=== PATIENT | male | born 1995 | race Caucasian/White ===

== ENCOUNTER 2017-01-19 14:13 | Emergency (ER) | payer BC ==
[~2017-01-19] VITALS: Ht 175.3 cm; Wt 86.3 kg
[2017-01-19 14:14] VITALS: BP 131/85
[2017-01-19] MEDS ORDERED: CYPR4TA PO (14:20)
[2017-01-19] MEDS ORDERED: PRAZ1CAP PO (14:20)
[2017-01-19] MEDS ORDERED: SERT-155 PO (14:20)
== END 2017-01-19 15:25 | disposition home or self-care (01) ==
LOC: M ED 15:08
DX: F32.9 Major depressive disorder, single episode, unspecified (principal)

== ENCOUNTER 2022-06-07 14:29 | Emergency (ER) | payer BC, MEDICAID, SELFPAY ==
[~2022-06-07] VITALS: Ht 177.8 cm; Wt 79.0 kg
[~2022-06-07 14:29] MED LIST: CYPR4TA PO; PRAZ1CAP PO; SERT50TA29 PO
[2022-06-07 15:30] LABS: MEAN CORPUSCULAR HEMOGLOBIN 32.5 pg (27.0-33.0); MEAN CORPUSCULAR HGB CONC 34.8 g/dl (32.0-36.5); MEAN CORPUSCULAR VOLUME 93.5 fl (80.0-96.0); PLATELET COUNT, AUTOMATED 326 10^3/uL (150-450); RED BLOOD COUNT 4.92 10^6/uL (4.30-6.10); WHITE BLOOD COUNT 8.4 10^3/uL (4.0-10.0)
[2022-06-07 16:08] LABS: RSV AMPLIFICATION NEGATIVE (NEGATIVE)
[2022-06-07 16:20] LABS: ACETAMINOPHEN LEVEL < 2.0 UG/ML (10.0-30.0); ALKALINE PHOSPHATASE 78 U/L (45-117); ALT/SGPT 31 U/L (12-78); AST/SGOT 27 U/L (7-37); BILIRUBIN,DIRECT 0.4 MG/DL (0.0-0.2); BILIRUBIN,TOTAL 1.1 MG/DL (0.2-1.0); BLOOD UREA NITROGEN 9 MG/DL (7-18); CALCIUM LEVEL 10.3 MG/DL (8.5-10.1); CARBON DIOXIDE LEVEL 27 MEQ/L (21-32); CHLORIDE LEVEL 100 MEQ/L (98-107); CREATININE FOR GFR 1.05 MG/DL (0.70-1.30); ETHYL ALCOHOL (ETHANOL) < 0.003 % (0.000-0.010); GLOMERULAR FILTRATION RATE > 60.0 (>60); GLUCOSE, FASTING 119 MG/DL (70-100); POTASSIUM SERUM 3.8 MEQ/L (3.5-5.1); SALICYLATE LEVEL < 1.7 MG/DL (5.0-30.0); SODIUM LEVEL 136 MEQ/L (136-145); TOTAL PROTEIN 8.3 GM/DL (6.4-8.2)
[2022-06-07 17:35] LABS: AMPHETAMINES LEVEL URINE NEGATIVE (NEGATIVE); BARBITURATES URINE NEGATIVE (NEGATIVE); BENZODIAZEPINES URINE NEGATIVE (NEGATIVE); CANNABINOIDS URINE NEGATIVE (NEGATIVE); COCAINE METABOLITE URINE NEGATIVE (NEGATIVE); METHADONE URINE NEGATIVE (NEGATIVE); OPIATES URINE NEGATIVE (NEGATIVE); PHENCYCLIDINE URINE NEGATIVE (NEGATIVE)
[2022-06-07] MEDS ORDERED: HOME MED LIST COMPLETE! XX SCH (17:40)
[2022-06-07] MEDS ORDERED: LORazepam 1 MG TAB PO STA (23:01)
[2022-06-08 03:27] LABS: PHOSPHORUS LEVEL 3.6 MG/DL (2.5-4.9)
[2022-06-09 10:34] LABS: PTH INTACT 17.3 PG/ML (18.5-88.0)
[2022-06-09] MEDS: PALIPERIDONE 3 MG ER TAB (INVEGA) PO SCH (21:00)
[2022-06-10 04:29] LABS: APPEARANCE, URINE MANUAL CLEAR (CLEAR); BILIRUBIN, URINE MANUAL 2+ (NEGATIVE); BLOOD URINE MANUAL NEGATIVE (NEGATIVE); COLOR, URINE MANUAL DK YELLOW (YELLOW); GLUCOSE, URINE (UA) MANUAL NEGATIVE (NEGATIVE); KETONE, URINE MANUAL 3+ mg/dL (NEGATIVE); NITRITE, URINE MANUAL NEGATIVE (NEGATIVE); PROTEIN, URINE MANUAL TRACE mg/dL (NEGATIVE); SPECIFIC GRAVITY,URINE MANUAL 1.025 (1.002-1.035); UROBILINOGEN, URINE MANUAL 8 MG mg/dl (NORMAL)
[2022-06-10 04:30] LABS: LEUKOCYTE ESTERASE, URINE MAN TRACE (NEGATIVE)
[2022-06-10 05:56] LABS: RBC, URINE NONE SEEN /hpf (0-3)
[2022-06-10 05:57] LABS: BACTERIA, URINE NONE SEEN; HYALINE CAST, URINE 0-1 /lpf (0-1); MUCUS, URINE LARGE AMOUNT (NEGATIVE); SQUAMOUS EPITHELIAL CELL URINE NONE SEEN /hpf (SMALL AMT)
[2022-06-10] MEDS: PALIPERIDONE 3 MG ER TAB (INVEGA) PO SCH (09:00)
[2022-06-10 10:54] VITALS: BP 120/70
== END 2022-06-10 11:08 ==
LOC: M ED 14:29
DX: R45.851 Suicidal ideations (principal); F32.9 Major depressive disorder, single episode, unspecified; F10.10 Alcohol abuse, uncomplicated; G43.909 Migraine, unspecified, not intractable, without status migrainosus

== ENCOUNTER 2023-01-14 14:42 | Inpatient (IN) | payer MEDICAID, OTHER ==
[~2023-01-14] VITALS: Ht 180.3 cm; Wt 90.8 kg
[2023-01-14 16:18] LABS: AMPHETAMINES LEVEL URINE NEGATIVE (NEGATIVE); BENZODIAZEPINES URINE NEGATIVE (NEGATIVE); CANNABINOIDS URINE NEGATIVE (NEGATIVE); METHADONE URINE NEGATIVE (NEGATIVE); OPIATES URINE NEGATIVE (NEGATIVE); PHENCYCLIDINE URINE NEGATIVE (NEGATIVE)
[2023-01-14 16:19] LABS: BARBITURATES URINE NEGATIVE (NEGATIVE); COCAINE METABOLITE URINE NEGATIVE (NEGATIVE)
[2023-01-14 16:20] LABS: ETHYL ALCOHOL (ETHANOL) < 0.003 % (0.000-0.010)
[2023-01-14 16:21] LABS: HEMATOCRIT 40.3 % (42.0-52.0); HEMOGLOBIN 13.7 g/dl (13.5-17.5); MEAN CORPUSCULAR HEMOGLOBIN 32.5 pg (27.0-33.0); MEAN CORPUSCULAR VOLUME 95.7 fl (80.0-96.0); PLATELET COUNT, AUTOMATED 329 10^3/uL (150-450); RED BLOOD COUNT 4.21 10^6/uL (4.30-6.10); SALICYLATE LEVEL < 3.0 MG/DL (<30); WHITE BLOOD COUNT 9.7 10^3/uL (4.0-10.0)
[2023-01-14 16:22] LABS: ALBUMIN 4.4 G/DL (3.2-5.2); ALKALINE PHOSPHATASE 62 U/L (46-116); ALT/SGPT 24 U/L (7.0-40); AST/SGOT 28 U/L (<34); BILIRUBIN,DIRECT 0.2 MG/DL (<0.4); BILIRUBIN,TOTAL 0.6 MG/DL (0.3-1.2); BLOOD UREA NITROGEN 15 MG/DL (9-23); CALCIUM LEVEL 9.7 MG/DL (8.5-10.1); CARBON DIOXIDE LEVEL 25 MMOL/L (20-31); CHLORIDE LEVEL 104 MMOL/L (98-107); CREATININE FOR GFR 0.87 MG/DL (0.70-1.30); GLOMERULAR FILTRATION RATE > 60.0 (>60); GLUCOSE, FASTING 119 MG/DL (60-100); POTASSIUM SERUM 4.6 MMOL/L (3.5-5.1); SODIUM LEVEL 138 MMOL/L (136-145); TOTAL PROTEIN 6.9 G/DL (5.7-8.2)
[2023-01-14 16:23] LABS: THYROID STIMULATING HORMONE 2.518 uIU/ML (0.55-4.78)
[2023-01-14] MEDS ORDERED: OLANZapine ORAL DISINTEGRATING TAB 5MG PO ONE (18:15)
[2023-01-14] MEDS ORDERED: HOME MED LIST COMPLETE! XX SCH (22:45)
[2023-01-15] MEDS ORDERED: MAALOX 30 ML SUSP *UDC PO PRN (01:20)
[2023-01-15] MEDS ORDERED: ACETAMINOPHEN TAB 650MG DOSE (2X325MG) PO PRN (01:20)
[2023-01-15] MEDS ORDERED: MOM 30ML SUSPENSION UDC PO PRN (01:20)
[2023-01-15] MEDS ORDERED: NICOTINE 21MG/24HR 1 EA TRANSDERMAL TD PRN (01:20)
[2023-01-15] MEDS ORDERED: traZODone 50 MG TAB PO PRN (01:20)
[2023-01-15] MEDS ORDERED: IBUPROFEN 400MG TAB PO PRN (01:20)
[2023-01-15] MEDS ORDERED: diphenhydrAMINE 25MG CAP PO PRN (01:20)
[2023-01-15] MEDS: OLANZapine ORAL DISINTEGRATING TAB 5MG PO PRN ×2 (02:41→21:33)
[2023-01-15] MEDS: LORazepam 1 MG TAB PO PRN ×2 (02:42→20:50)
[2023-01-15 03:33] VITALS: BP 122/68; TEMP 98.4; O2SAT 98
[2023-01-15] MEDS: risperiDONE 1 MG TAB PO SCH ×2 (13:08→20:50)
[2023-01-15 18:51] VITALS: BP 135/88; TEMP 99.1
[2023-01-16 06:10] VITALS: BP 126/84; TEMP 97.8; O2SAT 100
[2023-01-16] MEDS: risperiDONE 1 MG TAB PO SCH (10:44)
[2023-01-16] MEDS ORDERED: QUEtiapine FUMARATE 25 MG TAB PO PRN (11:15)
[2023-01-16 18:00] VITALS: BP 147/70; TEMP 98.1
[2023-01-16] MEDS: risperiDONE 2 MG TAB PO SCH (20:25)
[2023-01-17 06:42] VITALS: BP 150/90; TEMP 97.5; O2SAT 99
[2023-01-17 07:48] LABS: CHOLESTEROL RISK RATIO 2.44 (<5); HDL CHOLESTEROL 71.6 MG/DL (>40); LDL CHOLESTEROL 94.6 MG/DL (<100); NON-HDL-C 103.4 MG/DL
[2023-01-17] MEDS: risperiDONE 2 MG TAB PO SCH ×2 (09:00→21:47)
[2023-01-17 16:50] VITALS: BP 136/82; TEMP 98.8; O2SAT 99
[2023-01-18] MEDS: risperiDONE 2 MG TAB PO SCH ×2 (09:16→21:49)
[2023-01-18 16:20] VITALS: BP 132/80; TEMP 99; O2SAT 99
[2023-01-19 06:33] VITALS: BP 128/65; TEMP 97.3; O2SAT 100
[2023-01-19] MEDS: risperiDONE 2 MG TAB PO SCH ×2 (08:54→20:21)
[2023-01-19] MEDS ORDERED: PALIPERIDONE PAL 234MG/1.5ML INJ (INVEGA)(FREE PSY INPT ONLY) IM ONE (13:00)
[2023-01-19 18:00] VITALS: BP 141/78; TEMP 96.4
[2023-01-20 06:23] VITALS: BP 104/58; TEMP 98.2; O2SAT 97
[2023-01-20] MEDS: risperiDONE 2 MG TAB PO SCH ×2 (08:45→20:02)
[2023-01-20 17:55] VITALS: BP 146/70; TEMP 96.1
[2023-01-21 06:02] VITALS: BP 109/55; TEMP 97; O2SAT 100
[2023-01-21] MEDS: risperiDONE 2 MG TAB PO SCH ×2 (08:46→20:31)
[2023-01-21 18:22] VITALS: BP 127/62; TEMP 98
[2023-01-22 06:35] VITALS: BP 106/58; TEMP 98; O2SAT 96
[2023-01-22] MEDS: risperiDONE 2 MG TAB PO SCH ×2 (09:51→20:20)
[2023-01-22 18:50] VITALS: BP 129/78; TEMP 97.6
[2023-01-23 06:32] VITALS: BP 93/57; TEMP 97.8; O2SAT 98
[2023-01-23] MEDS: risperiDONE 2 MG TAB PO SCH (08:38)
[2023-01-23] MEDS ORDERED: PALIPERIDONE PAL 156MG/1ML INJ(INVEGA)(FREE PSY INPT ONLY) IM ONE (09:00)
[2023-01-23] MEDS ORDERED: TRAZ-252 PO (09:13)
[2023-01-23] MEDS ORDERED: INVE234I IM (09:15)
== END 2023-01-23 12:02 | disposition home or self-care (01) | DRG 750 ==
LOC: M ED 14:42 → M ED INP 01-15 01:19 → M PSY 01-15 02:35
PROVIDERS: ADMIT Student in an Organized Health Care Education/Training Program; ATTEND Student in an Organized Health Care Education/Training Program
DX: F20.9 Schizophrenia, unspecified (principal); F17.200 Nicotine dependence, unspecified, uncomplicated; G47.00 Insomnia, unspecified; F43.10 Post-traumatic stress disorder, unspecified; F95.2 Tourette's disorder; F42.9 Obsessive-compulsive disorder, unspecified; Z20.822 Contact with and (suspected) exposure to COVID-19

== ENCOUNTER 2023-12-17 07:06 | Inpatient (IN) | payer MEDICARE, MEDICAID ==
[~2023-12-17] VITALS: Ht 188 cm; Wt 70.2 kg
[~2023-12-17 07:06] MED LIST changes: +INVE234I IM; +TRAZ-252 PO
[2023-12-17] MEDS ORDERED: HOME MED LIST COMPLETE! XX SCH (09:30)
[2023-12-17] MEDS ORDERED: diphenhydrAMINE 25MG CAP PO PRN (18:50)
[2023-12-17] MEDS ORDERED: traZODone 50 MG TAB PO PRN (18:50)
[2023-12-17] MEDS ORDERED: IBUPROFEN 400MG TAB PO PRN (18:50)
[2023-12-17] MEDS ORDERED: MAALOX 30 ML SUSP *UDC PO PRN (18:50)
[2023-12-17] MEDS ORDERED: ACETAMINOPHEN TAB 650MG DOSE (2X325MG) PO PRN (18:50)
[2023-12-17] MEDS ORDERED: OLANZapine ORAL DISINTEGRATING TAB 5MG PO PRN (18:50)
[2023-12-17] MEDS ORDERED: MOM 30ML SUSPENSION UDC PO PRN (18:50)
[2023-12-18 09:19] VITALS: BP 121/83; TEMP 96.2; O2SAT 100
[2023-12-18 16:12] VITALS: BP 128/77; TEMP 98.4; O2SAT 99
[2023-12-18] MEDS: CARIPRAZINE 1.5MG CAPSULE (VRAYLAR) PO SCH (21:12)
[2023-12-19 06:23] VITALS: BP 111/59; TEMP 96.9; O2SAT 95
[2023-12-19 08:37] LABS: CHOLESTEROL LEVEL 159 MG/DL (<200); CHOLESTEROL RISK RATIO 3.29 (<5); HDL CHOLESTEROL 48.2 MG/DL (>40); LDL CHOLESTEROL 97.8 MG/DL (<100); NON-HDL-C 110.8 MG/DL; TRIGLYCERIDES LEVEL 65 MG/DL (<150)
[2023-12-19 11:47] LABS: BLOOD UREA NITROGEN 14 MG/DL (9-23); CALCIUM LEVEL 9.1 MG/DL (8.5-10.1); CARBON DIOXIDE LEVEL 30 MMOL/L (20-31); CHLORIDE LEVEL 110 MMOL/L (98-107); CREATININE FOR GFR 0.86 MG/DL (0.70-1.30); GLOMERULAR FILTRATION RATE > 60.0 (>60); GLUCOSE, FASTING 83 MG/DL (60-100); POTASSIUM SERUM 4.4 MMOL/L (3.5-5.1); SODIUM LEVEL 144 MMOL/L (136-145)
[2023-12-19 15:49] VITALS: BP 126/76; TEMP 97.9; O2SAT 100
[2023-12-20 06:55] VITALS: BP 101/62; TEMP 98.4; O2SAT 98
[2023-12-20 07:38] LABS: HEMATOCRIT 34.3 % (42.0-52.0); HEMOGLOBIN 11.9 g/dl (13.5-17.5); MEAN CORPUSCULAR HEMOGLOBIN 33.1 pg (27.0-33.0); MEAN CORPUSCULAR HGB CONC 34.7 g/dl (32.0-36.5); MEAN CORPUSCULAR VOLUME 95.3 fl (80.0-96.0); PLATELET COUNT, AUTOMATED 228 10^3/uL (150-450); WHITE BLOOD COUNT 6.8 10^3/uL (4.0-10.0)
[2023-12-20 08:07] LABS: BLOOD UREA NITROGEN 15 MG/DL (9-23); CALCIUM LEVEL 9.1 MG/DL (8.5-10.1); CARBON DIOXIDE LEVEL 28 MMOL/L (20-31); CHLORIDE LEVEL 110 MMOL/L (98-107); GLOMERULAR FILTRATION RATE > 60.0 (>60); GLUCOSE, FASTING 84 MG/DL (60-100); POTASSIUM SERUM 4.4 MMOL/L (3.5-5.1); SODIUM LEVEL 142 MMOL/L (136-145)
[2023-12-20 16:02] VITALS: BP 102/59; TEMP 98.6; O2SAT 98
[2023-12-20] MEDS: CARIPRAZINE 1.5MG CAPSULE (VRAYLAR) PO SCH (21:10)
[2023-12-21 06:50] VITALS: BP 103/58; TEMP 97.3; O2SAT 97
[2023-12-21 17:59] VITALS: BP 114/56; TEMP 97.8
[2023-12-22 06:00] VITALS: BP 101/59; TEMP 97.4; O2SAT 97
[2023-12-22] MEDS ORDERED: OLAN5ZYD PO (12:40)
[2023-12-22] MEDS ORDERED: VRAY3CAP PO (12:40)
== END 2023-12-22 13:31 | disposition home or self-care (01) | DRG 885 ==
LOC: M ED 07:06 → M ED INP 18:46 → M PSY 12-18 09:29
PROVIDERS: ADMIT Student in an Organized Health Care Education/Training Program; ATTEND Student in an Organized Health Care Education/Training Program
DX: F20.9 Schizophrenia, unspecified (principal); F43.10 Post-traumatic stress disorder, unspecified; Z56.0 Unemployment, unspecified

== ENCOUNTER 2024-02-06 17:29 | Inpatient (IN) | payer MEDICARE, MEDICAID ==
[~2024-02-06] VITALS: Ht 175.3 cm; Wt 70.0 kg
[~2024-02-06 17:29] MED LIST changes: +OLAN5ZYD PO; +VRAY3CAP PO
[2024-02-06] MEDS ORDERED: MAALOX 30 ML SUSP *UDC PO PRN (20:40)
[2024-02-06] MEDS ORDERED: traZODone 50 MG TAB PO PRN (20:40)
[2024-02-06] MEDS ORDERED: diphenhydrAMINE 25MG CAP PO PRN (20:40)
[2024-02-06] MEDS ORDERED: MOM 30ML SUSPENSION UDC PO PRN (20:40)
[2024-02-06] MEDS ORDERED: IBUPROFEN 400MG TAB PO PRN (20:40)
[2024-02-06 21:46] VITALS: BP 109/56; TEMP 98.4; O2SAT 98
[2024-02-06] MEDS ORDERED: HOME MED LIST COMPLETE! XX SCH (22:55)
[2024-02-07 05:53] VITALS: BP 119/75; TEMP 97.1; O2SAT 98
[2024-02-07 10:19] LABS: HEMATOCRIT 40.9 % (42.0-52.0); MEAN CORPUSCULAR HEMOGLOBIN 32.8 pg (27.0-33.0); MEAN CORPUSCULAR HGB CONC 34.2 g/dl (32.0-36.5); MEAN CORPUSCULAR VOLUME 95.8 fl (80.0-96.0); PLATELET COUNT, AUTOMATED 316 10^3/uL (150-450); RED BLOOD COUNT 4.27 10^6/uL (4.30-6.10); WHITE BLOOD COUNT 5.5 10^3/uL (4.0-10.0)
[2024-02-07 10:48] LABS: HEMOGLOBIN A1c 4.7 % (4.0-6.0)
[2024-02-07 10:53] LABS: ACETONE/KETONE 0.07 MMOL/L (0.02-0.27); ALBUMIN 4.4 G/DL (3.2-5.2); ALKALINE PHOSPHATASE 58 U/L (46-116); ALT/SGPT 15 U/L (7.0-40); AST/SGOT 11 U/L (<34); BILIRUBIN,TOTAL 0.4 MG/DL (0.3-1.2); BLOOD UREA NITROGEN 7 MG/DL (9-23); CALCIUM LEVEL 10.1 MG/DL (8.5-10.1); CARBON DIOXIDE LEVEL 29 MMOL/L (20-31); CHLORIDE LEVEL 106 MMOL/L (98-107); CREATININE FOR GFR 0.92 MG/DL (0.70-1.30); GLOMERULAR FILTRATION RATE > 60.0 (>60); GLUCOSE, FASTING 68 MG/DL (60-100); POTASSIUM SERUM 4.6 MMOL/L (3.5-5.1); SODIUM LEVEL 140 MMOL/L (136-145); TOTAL PROTEIN 6.8 G/DL (5.7-8.2)
[2024-02-07 10:55] LABS: THYROID STIMULATING HORMONE 2.346 uIU/ML (0.55-4.78)
[2024-02-07 16:06] VITALS: BP 112/58; TEMP 98.7; O2SAT 97
[2024-02-08 06:34] VITALS: BP 108/60; TEMP 98.5; O2SAT 97
[2024-02-08] MEDS: ACETAMINOPHEN TAB 650MG DOSE (2X325MG) PO PRN (10:47)
[2024-02-08] MEDS: RISPERIDONE 1 MG TAB PO SCH (11:09)
[2024-02-08 18:54] VITALS: BP_SYST 106; BP_SYST 142; BP_DIAS 66; BP_DIAS 67; TEMP 98.6
[2024-02-09 05:49] VITALS: BP 109/54; TEMP 98.1; O2SAT 96
[2024-02-09] MEDS: CARIPRAZINE 1.5MG CAPSULE (VRAYLAR) PO ONE (09:31)
[2024-02-09 18:51] VITALS: BP 115/62; TEMP 98.2
[2024-02-10 06:38] VITALS: BP 108/58; TEMP 97.8; O2SAT 95
[2024-02-10] MEDS: CARIPRAZINE 3MG CAPSULE (VRAYLAR) PO SCH (09:34)
[2024-02-10 17:44] VITALS: BP 140/87; TEMP 97.9
[2024-02-11 06:32] VITALS: BP 105/52; TEMP 98.4; O2SAT 98
[2024-02-11 18:57] VITALS: BP 132/84; TEMP 98.4; O2SAT 97
[2024-02-12] MEDS ORDERED: CARIPRAZINE 3MG CAPSULE (VRAYLAR) As Ordered ONE (08:29)
[2024-02-12] MEDS ORDERED: VRAY3CAP PO (13:08)
== END 2024-02-12 13:31 | disposition home or self-care (01) | DRG 885 ==
LOC: M ED 17:29 → M ED INP 20:37 → M PSY 21:34 → M ED INP 21:35 → M PSY 21:36
PROVIDERS: ADMIT Psychiatry & Neurology Psychiatry; ATTEND Student in an Organized Health Care Education/Training Program
DX: F20.9 Schizophrenia, unspecified (principal); F43.10 Post-traumatic stress disorder, unspecified; Z91.198 Patient's noncompliance with other medical treatment and regimen for other reason

== ENCOUNTER → 2024-08-02 | Outpatient (REF) | payer MEDICARE, MEDICAID ==
[~2024-08-02] MED LIST changes: -CYPR4TA PO; +CYPR4TAB36 PO
[2024-08-02 14:13] LABS: HEMATOCRIT 45.3 % (42.0-52.0); HEMOGLOBIN 15.3 g/dl (13.5-17.5); MEAN CORPUSCULAR HEMOGLOBIN 31.9 pg (27.0-33.0); MEAN CORPUSCULAR HGB CONC 33.8 g/dl (32.0-36.5); MEAN CORPUSCULAR VOLUME 94.6 fl (80.0-96.0); PLATELET COUNT, AUTOMATED 264 10^3/uL (150-450); RED BLOOD COUNT 4.79 10^6/uL (4.30-6.10); WHITE BLOOD COUNT 5.6 10^3/uL (4.0-10.0)
[2024-08-02 14:18] LABS: ALBUMIN 4.2 G/DL (3.2-5.2); ALKALINE PHOSPHATASE 77 U/L (40-129); ALT/SGPT 38 U/L (7.0-40); AST/SGOT 28 U/L (<34); BILIRUBIN,TOTAL 0.4 MG/DL (0.3-1.2); BLOOD UREA NITROGEN 22 MG/DL (9-23); CALCIUM LEVEL 9.9 MG/DL (8.5-10.1); CARBON DIOXIDE LEVEL 30 MMOL/L (20-31); CHLORIDE LEVEL 105 MMOL/L (98-107); CHOLESTEROL LEVEL 270 MG/DL (<200); CHOLESTEROL RISK RATIO 4.37 (<5); CREATININE FOR GFR 0.97 MG/DL (0.70-1.30); GLOMERULAR FILTRATION RATE > 60.0 (>60); GLUCOSE, FASTING 94 MG/DL (60-100); HDL CHOLESTEROL 61.7 MG/DL (>40); LDL CHOLESTEROL 174.7 MG/DL (<100); NON-HDL-C 208.3 MG/DL; POTASSIUM SERUM 4.5 MMOL/L (3.5-5.1); SODIUM LEVEL 140 MMOL/L (136-145); TOTAL PROTEIN 7.3 G/DL (5.7-8.2); TRIGLYCERIDES LEVEL 168 MG/DL (<150)
[2024-08-02 14:22] LABS: THYROID STIMULATING HORMONE 12.194 uIU/ML (0.55-4.78)
[2024-08-02 14:34] LABS: HEMOGLOBIN A1c 4.8 % (4.0-6.0)
== END ==
LOC: M LAB REF 12:09
PROVIDERS: ATTEND Student in an Organized Health Care Education/Training Program
DX: Z00.01 Encounter for general adult medical examination with abnormal findings (principal); Z79.899 Other long term (current) drug therapy

== ENCOUNTER → 2024-08-10 | Outpatient (CLI) | payer MEDICARE, MEDICAID ==
[2024-08-10 15:20] LABS: TOTAL 25(OH) VITAMIN D 22.4 NG/ML (20.0-100.0)
== END ==
LOC: M LAB 13:23
PROVIDERS: ATTEND Student in an Organized Health Care Education/Training Program
DX: Z00.00 Encounter for general adult medical examination without abnormal findings (principal); Z79.899 Other long term (current) drug therapy; Z13.21 Encounter for screening for nutritional disorder

== ENCOUNTER → 2024-08-18 | Outpatient (REF) | payer MEDICAID, MEDICARE ==
[2024-08-18 14:48] LABS: FREE T4 1.22 NG/DL (0.89-1.76); THYROID STIMULATING HORMONE 9.747 uIU/ML (0.55-4.78)
== END ==
LOC: M LAB REF 13:20
PROVIDERS: ATTEND Student in an Organized Health Care Education/Training Program
DX: R94.6 Abnormal results of thyroid function studies (principal)

== ENCOUNTER → 2024-09-06 | Outpatient (REF) | payer MEDICARE, MEDICAID ==
[2024-09-06 13:54] LABS: FREE T4 1.14 NG/DL (0.89-1.76); THYROID STIMULATING HORMONE 6.841 uIU/ML (0.55-4.78)
== END ==
LOC: M LAB REF 12:22
PROVIDERS: ATTEND Student in an Organized Health Care Education/Training Program
DX: R94.6 Abnormal results of thyroid function studies (principal)

== ENCOUNTER → 2024-09-29 | Outpatient (REF) | payer MEDICARE, MEDICAID | LOC: M LAB REF 13:11 | PROVIDERS: ATTEND Student in an Organized Health Care Education/Training Program | DX: Z87.438 Personal history of other diseases of male genital organs (principal) ==

== ENCOUNTER → 2024-10-03 | Outpatient (REF) | payer MEDICARE, MEDICAID | LOC: M LAB REF 14:57 | PROVIDERS: ATTEND Student in an Organized Health Care Education/Training Program | DX: Z87.438 Personal history of other diseases of male genital organs (principal) ==

== ENCOUNTER → 2024-10-25 | Outpatient (REF) | payer MEDICARE, MEDICAID ==
[2024-10-25 14:24] LABS: CHOLESTEROL RISK RATIO 3.96 (<5); HDL CHOLESTEROL 58.5 MG/DL (>40); LDL CHOLESTEROL 131.5 MG/DL (<100); NON-HDL-C 173.5 MG/DL
[2024-10-25 14:27] LABS: THYROID STIMULATING HORMONE 6.707 uIU/ML (0.55-4.78)
[2024-10-25 14:28] LABS: FREE T4 1.15 NG/DL (0.89-1.76)
== END ==
LOC: M LAB REF 12:37
PROVIDERS: ATTEND Student in an Organized Health Care Education/Training Program
DX: E02 Subclinical iodine-deficiency hypothyroidism (principal); E78.5 Hyperlipidemia, unspecified

== ENCOUNTER → 2024-11-02 | Outpatient (REF) | payer MEDICARE, MEDICAID ==
[2024-11-02 15:20] LABS: BACTERIA, URINE AUTO NEGATIVE (NEGATIVE); RBC, URINE AUTO 1 /HPF (0-3); SQUAMOUS EPITHELIAL CELL UR AU 0 /HPF (0-6); WBC, URINE AUTO 1 /HPF (0-3)
== END ==
LOC: M SMT 15:03
PROVIDERS: ATTEND Physician Assistant
DX: R86.9 Unspecified abnormal finding in specimens from male genital organs (principal)

== ENCOUNTER → 2024-11-04 | Outpatient (REF) | payer MEDICARE, MEDICAID ==
[2024-11-04 16:36] LABS: APPEARANCE, URINE CLEAR (CLEAR); BACTERIA, URINE AUTO NEGATIVE (NEGATIVE); BILIRUBIN, URINE AUTO NEGATIVE (NEGATIVE); BLOOD, URINE BLOOD NEGATIVE (NEGATIVE); COLOR, URINE STRAW (YELLOW); GLUCOSE, URINE (UA) AUTO NEGATIVE (NEGATIVE); KETONE, URINE AUTO NEGATIVE (NEGATIVE); LEUKOCYTE ESTERASE, URINE AUTO NEGATIVE (NEGATIVE); NITRITE, URINE AUTO NEGATIVE (NEGATIVE); PROTEIN, URINE AUTO NEGATIVE (NEGATIVE); RBC, URINE AUTO 0 /HPF (0-3); SPECIFIC GRAVITY URINE AUTO 1.011 (1.002-1.035); SQUAMOUS EPITHELIAL CELL UR AU 0 /HPF (0-6); UROBILINOGEN, URINE AUTO 0.2 mg/dL (0.0-2.0); WBC, URINE AUTO 0 /HPF (0-3)
== END ==
LOC: M SMT 15:49
PROVIDERS: ATTEND Physician Assistant
DX: R86.9 Unspecified abnormal finding in specimens from male genital organs (principal)

== ENCOUNTER → 2024-11-24 | Outpatient (REF) | payer MEDICARE, MEDICAID ==
[2024-11-24 15:48] LABS: APPEARANCE, URINE CLEAR (CLEAR); BACTERIA, URINE AUTO NEGATIVE (NEGATIVE); BILIRUBIN, URINE AUTO NEGATIVE (NEGATIVE); BLOOD, URINE BLOOD NEGATIVE (NEGATIVE); COLOR, URINE YELLOW (YELLOW); GLUCOSE, URINE (UA) AUTO NEGATIVE (NEGATIVE); KETONE, URINE AUTO NEGATIVE (NEGATIVE); LEUKOCYTE ESTERASE, URINE AUTO NEGATIVE (NEGATIVE); MUCUS, URINE SMALL (NEGATIVE); NITRITE, URINE AUTO NEGATIVE (NEGATIVE); PROTEIN, URINE AUTO NEGATIVE (NEGATIVE); RBC, URINE AUTO 0 /HPF (0-3); SPECIFIC GRAVITY URINE AUTO 1.017 (1.002-1.035); SQUAMOUS EPITHELIAL CELL UR AU 0 /HPF (0-6); UROBILINOGEN, URINE AUTO 0.2 mg/dL (0.0-2.0); WBC, URINE AUTO 1 /HPF (0-3)
== END ==
LOC: M SMT 15:17
PROVIDERS: ATTEND Physician Assistant
DX: R86.9 Unspecified abnormal finding in specimens from male genital organs (principal)

== ENCOUNTER → 2024-12-13 | Outpatient (REF) | payer MEDICARE, MEDICAID | LOC: M LAB REF 17:38 | PROVIDERS: ATTEND Student in an Organized Health Care Education/Training Program | DX: E02 Subclinical iodine-deficiency hypothyroidism (principal) ==

== ENCOUNTER → 2025-05-23 | Outpatient (CLI) | payer MEDICARE, MEDICAID ==
[2025-05-23 12:34] LABS: BASO # 0.1 10^3/uL (0.0-0.2); BASO % 0.6 % (0.0-1.0); EOS # 0.0 10^3/uL (0.0-0.5); EOS % 0.2 % (0.0-3.0); LYMPH # 2.8 10^3/uL (1.5-5.0); LYMPH % 26.3 % (24.0-44.0); MONO # 0.4 10^3/uL (0.0-0.8); MONO % 3.2 % (2.0-8.0); NEUTROPHILS # 7.4 10^3/uL (1.5-8.5); NEUTROPHILS % 69.0 % (36.0-66.0); PLATELET COUNT, AUTOMATED 389 10^3/uL (150-450)
[2025-05-23 13:08] LABS: ESTIMATED AVERAGE GLUCOSE 91.0 MG/DL (60-110)
[2025-05-23 13:13] LABS: ALT/SGPT 30 U/L (7.0-40); AST/SGOT 24 U/L (<34); CALCIUM LEVEL 11.3 MG/DL (8.5-10.1); CARBON DIOXIDE LEVEL 26 MMOL/L (20-31); CHLORIDE LEVEL 104 MMOL/L (98-107); CHOLESTEROL LEVEL 222 MG/DL (<200); CHOLESTEROL RISK RATIO 3.40 (<5); CREATININE FOR GFR 0.89 MG/DL (0.70-1.30); GLOMERULAR FILTRATION RATE > 90.0 (>60); LDL CHOLESTEROL 126.4 MG/DL (<100); NON-HDL-C 156.8 MG/DL; POTASSIUM SERUM 4.7 MMOL/L (3.5-5.1); SODIUM LEVEL 143 MMOL/L (136-145); TRIGLYCERIDES LEVEL 152 MG/DL (<150)
[2025-05-23 13:15] LABS: LITHIUM LEVEL 0.42 MMOL/L (1.0-1.20)
== END ==
LOC: M LAB 11:52
DX: F99 Mental disorder, not otherwise specified (principal); Z79.899 Other long term (current) drug therapy

== ENCOUNTER → 2025-06-07 | Outpatient (CLI) | payer MEDICARE, MEDICAID | LOC: M LAB 10:52 | DX: F20.9 Schizophrenia, unspecified (principal) ==

== ENCOUNTER → 2025-06-29 | Outpatient (CLI) | payer MEDICARE, MEDICAID | LOC: M LAB 12:40 | DX: F20.9 Schizophrenia, unspecified (principal); Z79.899 Other long term (current) drug therapy ==